=== PATIENT | male | born 1970 | race Caucasian/White ===

== ENCOUNTER 2017-03-07 12:00 | Emergency (ER) | payer OTHER ==
[~2017-03-07] VITALS: Ht 185.4 cm; Wt 105.9 kg
[~2017-03-07 12:00] MED LIST: ASPIR-LOW81 MG PO; CLOPIDOGREL75 MG PO; METOPROLOL SUCC25 MG PO; METOPROLOL SUCC50 MG PO; PRAVASTATIN SOD40 MG PO; ZESTORETIC 20-1 EAC1 NG
[2017-03-07] MEDS ORDERED: LISINOPRIL20 MG PO (12:15)
[2017-03-07 12:30] LABS: ADD MIUA? YES; BILIRUBIN NEGATIVE; BLOOD MODERATE; COLOR YELLOW ((YELLOW)); GLUCOSE (STRIP) NEGATIVE; KETONES NEGATIVE; LEUKOCYTES NEGATIVE; NITRITE NEGATIVE; PROTEIN (STRIP) 30; SPECIFIC GRAVITY 1.024 (1.000-1.030); UROBILINOGEN 0.2 MG/DL (0.2-1.0)
[2017-03-07 12:50] LABS: RED BLOOD CELLS NONE SEEN /HPF (0-5); WHITE BLOOD CELLS 0-5 /HPF (0-5)
[2017-03-07 12:51] LABS: BACTERIA RARE /HPF; CALCIUM OXALATE CRYSTALS 2+ /HPF; MUCUS 3+ /LPF; UCUL ADDED? NO
[2017-03-07 12:52] LABS: EPITHELIAL CELLS 1+ /HPF
[2017-03-07 13:14] LABS: BASOPHIL COUNT 0.1 K/uL (0-0.1); EOSINOPHIL (%) 0.3 % (0-5); HEMATOCRIT 42.1 % (38.0-50.0); IMMATURE GRANULOCYTE (%) 0.7 % (0.0-0.7); IMMATURE GRANULOCYTE COUNT 0.1 K/uL; INSTRUMENT ABS NEUTROPHIL CT 12.7 K/uL; LYMPHOCYTE COUNT 1.6 K/uL (1.0-2.8); MCH 28.4 PG (29.0-34.0); MCV 85.9 FL (86-99); MEAN PLAT.VOLUME 10.8 uM^3 (9.0-12.4); MONOCYTE (%) 4.7 % (3-12); MONOCYTE COUNT 0.7 K/uL (0-0.8); NEUTROPHIL (%) 83.6 % (45-76); NEUTROPHIL COUNT 12.7 K/uL (1.8-6.4); PLATELET COUNT 369 K/uL (156-360); RBC DIS.WIDTH-CV 12.2 % (11.8-14.6); RBC DIS.WIDTH-SD 38.2 % (39-53); WHITE BLOOD COUNT 15.2 K/uL (4.1-10.2)
[2017-03-07 13:48] LABS: ANION GAP 13 MEQ/L (2-14); CHLORIDE 106 MEQ/L (99-109); POTASSIUM 3.6 MEQ/L (3.7-5.4); SAMPLE HEMOLYSIS CHECK 0; SAMPLE ICTERIC CHECK 0; SAMPLE LIPEMIA CHECK 0; SODIUM 141 MEQ/L (136-147); TOTAL BILIRUBIN 0.5 MG/DL (0.0-1.0)
[2017-03-07 13:54] LABS: ALKALINE PHOSPHATASE 79 IU/L (3-129); GFR ESTIMATE (CALCULATED) > 59 mL/min/; GLUCOSE 128 mg/dL (70-99); UREA NITROGEN (BUN) 20 mg/dL (9-23)
[2017-03-07] MEDS ORDERED: FLOMAX0.4 MG PO (14:57)
[2017-03-07] MEDS ORDERED: PERCOCET 5/31 TABLET PO (14:57)
[2017-03-07] MEDS ORDERED: CIPRO500 MG PO (14:57)
[2017-03-07] MEDS ORDERED: ZOFRAN ODT4 MG PO (14:57)
[2017-03-07 15:06] VITALS: BP 142/78
== END 2017-03-07 15:11 | disposition home or self-care (01) ==
LOC: EME 12:00 → EXP 12:00
PROVIDERS: Physician Assistant
DX: N20.1 Calculus of ureter (principal); I10 Essential (primary) hypertension
CPT/HCPCS: 74176; 80053; 81003; 82550; 82553; 85025; 99281; 99285; J1885; J2270; J2405